=== PATIENT | female | born 1945 | race African-American/Black ===

== ENCOUNTER 2020-11-29 09:44 | Emergency (ER) | payer BC, MEDICARE ==
[~2020-11-29] VITALS: Ht 165.1 cm; Wt 78.6 kg
[2020-11-29 09:47] VITALS: BP 199/91
--- NOTE | 2020-11-29 10:50 | PHYS DOC ---
Past Medical History Past Medical History: Asthma, COPD, Hypertension Past Surgical History: Angioplasty, Hysterectomy, Pacemaker, Other Additional Past Surgical Histo: CARDIAC STENTS Smoking Status: Never Smoker Alcohol Use: None General Adult EDM: Chief Complaint: MECHANICAL FALL HPI: HPI: This is a pleasant 75-year-old female present emergency department today after sustaining a mechanical fall while walking back to her car at a local car dealership. She fell on both knees and then twisted her ankle. She denies hitting her head or loss of consciousness. She denies syncope. She denies any weakness or palpitations prior to the event. Her primary complaint is right ankle pain. Since the event her left knee does not hurt and has normal range of motion. Her right knee has some pain with a bruise overlying without an abrasion. She has pain in her right knee which is residual in her right ankle with some associated swelling in her right ankle. The pain is sharp shooting nonradiating without alleviating factors. Review of systems is negative for chest pain shortness of breath head injury loss of consciousness neck pain or back pain. All other review of systems negative. ED course: 75-year-old female presenting after fall with right knee and ankle pain. X-rays obtained. X-rays unremarkable. We will place the patient in an air splint with crutches and refer her to PCP for reexamination in 2 to 3 days. Heart Score: C/O Chest Pain: No Risk Factors: Risk Factors: DM, Current or recent (<one month) smoker, HTN, HLP, family history of CAD, obesity. Risk Scores: Score 0 - 3: 2.5% MACE over next 6 weeks - Discharge Home Score 4 - 6: 20.3% MACE over next 6 weeks - Admit for Clinical Observation Score 7 - 10: 72.7% MACE over next 6 weeks - Early Invasive Strategies Allergies: Allergies: Allergies Coded Allergies Type Severity Reaction Last Updated Verified lisinopril Allergy Severe ANGIOEDEMA 11/29/20 Yes Iodine and Iodide Containing Produc Allergy Unknown UNKNOWN 11/29/20 Yes Sulfa (Sulfonamide Antibiotics) Allergy Unknown UNKNOWN 11/29/20 Yes morphine Allergy Unknown UNKNOWN 11/29/20 Yes shellfish derived Allergy Unknown UNKNOWN 11/29/20 Yes Physical Exam: PE: Constitutional: Well developed, well nourished, no acute distress, non-toxic appearance. [] HENT: Normocephalic, atraumatic, bilateral external ears normal, oropharynx moist, no oral exudates, nose normal. [] Eyes: PERRLA, EOMI, conjunctiva normal, no discharge. [] Neck: Normal range of motion, no tenderness, supple, no stridor. [] Cardiovascular:Heart rate regular rhythm, no murmur [] Lungs & Thorax: Bilateral breath sounds clear to auscultation [] Abdomen: Bowel sounds normal, soft, no tenderness, no masses, no pulsatile masses. [] Skin: Warm, dry, no erythema, no rash. [] Back: No tenderness, no CVA tenderness. [] Extremities: The upper extremities are nontender with normal range of motion. Atraumatic without abrasions lacerations or ecchymosis. The patient's left lower extremity is nontender with normal range of motion of the joints. Nontender in the hip knee and ankle. Neurovascular intact with palpable pulse and 2-second cap refill. No ecchymosis abrasions lacerations. The patient's right lower extremity has ecchymosis just inferior to the patella without any abrasions or lacerations. She is tender on the patella. She is nontender on the lateral or medial portion of the knee joint. Normal range of motion of the knee with some minimal pain with passive range of motion. She is tender on the lateral malleolus with some associated swelling. No abrasions lacerations or ecchymosis of the ankle or foot. Palpable pulse with 2-second cap refill. Normal motor and sensory function of the foot. Neurologic: Alert and oriented X 3, normal motor function, normal sensory function, no focal deficits noted. [] Psychologic: Affect normal, judgement normal, mood normal. [] Current Patient Data: Vital Signs: Vital Signs Date Time Temp Pulse Resp B/P (MAP) Pulse Ox O2 Delivery O2 Flow Rate FiO2 11/29/20 09:47 98.3 78 19 199/91 (127) 97 Room Air 98.3 EKG: EKG: [] Radiology/Procedures: Radiology/Procedures: [] Course & Med Decision Making: Course & Med Decision Making Pertinent Labs and Imaging studies reviewed. (See chart for details) [] Dragon Disclaimer: Dragsriram Disclaimer: This electronic medical record was generated, in whole or in part, using a voice recognition dictation system. Departure Departure Impression: Primary Impression: Ankle injury Disposition: HOME / SELF CARE / HOMELESS Condition: STABLE Patient Instructions: Ankle Sprain, Ayue-fi-Eenn Additional Instructions: EMERGENCY DEPARTMENT GENERAL DISCHARGE INSTRUCTIONS We we will provide you with an ankle splint and crutches for now to follow-up with your doctor in a few days for reexamination of your ankle. Follow-up with your primary physician in 2-3 days. Return to the emergency department if you have any new or concerning findings. Thank you for coming to [facility] Emergency Department (ED) today and trusting us with you care. We trust that you had a positive experience in our Emergency Department. If you wish to speak to the department management, you may call the Director at [phone]. Follow up is important in emergency/acute care visits. This condition should be evaluated by your primary care physician and any necessary consulting services for continued management within a few days (1-2) after discharge. Return to the emergency department if you have any new or concerning symptoms including but not limited to fever, chills, nausea, vomiting, intractable pain, any new rashes, chest pain, shortness of breath, uncontrolled bleeding, difficulty breathing, and/or vision loss. 1. Do you have a private Doctor? If you do not have a private doctor, please ask for a resource list of physicians or clinics that may be able to assist you with follow up care. 2. If a lab test or culture has been done and does not come back immediately, your results will be reviewed and you will be notified if you need a change in treatment. 3. Your care today has been supervised by a physician who is specially trained in emergency care. Many problems require more than one evaluation for a complete diagnosis and treatment. We recommend that you schedule your follow up appointment as recommended to ensure complete treatment of you illness or injury. If you are unable to obtain follow up care and continue to have a problem, or if your condition worsens, we recommend that you return to the ED. 4. We are not able to safely determine your condition over the phone nor are we able to give sound medical advice over the phone. For these safety reasons, if you call for medical advice we will ask you to come to the ED for further evaluation. IF YOUR SYMPTOMS WORSEN OR NEW SYMPTOMS DEVELOP, OR YOU HAVE CONCERNS ABOUT YOUR CONDITION; OR IF YOUR CONDITION WORSENS WHILE YOU ARE WAITING FOR YOUR FOLLOW UP APPOINTMENT; EITHER CONTACT YOUR PRIMARY CARE DOCTOR, THE PHYSICIAN WHOSE NAME AND NUMBER YOU WERE GIVEN, OR RETURN TO THE ED IMMEDIATELY. YUE WYNN MD November 29, 2020 10:50
--- NOTE | 2020-11-29 11:21 | RAD ---
EXAM: Right knee, 4 views; right ankle, 3 views; right tibia and fibula, 2 views. HISTORY: Fall. COMPARISON: None. FINDINGS: Right knee: 4 views of the right knee are obtained. There is mild medial compartment joint space narr owing and [id number] medial compartment spurring. There is enthesopathy along the superior yeboah lla. There is no fracture, dislocation or subluxation. There is no joint effusion. Right tibia and fibula and right ankle: 2 views of the tibia and fibula and 3 views of the ankle are obtained. There is no fracture, dislocation or subluxation. There is diffuse lateral predominant ankl e soft tissue swelling. The ankle mortise is intact. There is no osteochondral lesion. There is a sma ll plantar spur. There is enthesopathy at the Achilles tendon insertion. IMPRESSION: 1. Nfxf-ul-[id number] medial compartment osteoarthritis of the right knee. 2. Diffuse lateral predominant ankle soft tissue swelling. 3. No acute osseous finding. Electronically signed by: Marii Magaña MD (11/29/2020 11:19 AM) [id number]
--- NOTE | 2020-11-29 11:21 | RAD ---
EXAM: Right knee, 4 views; right ankle, 3 views; right tibia and fibula, 2 views. HISTORY: Fall. COMPARISON: None. FINDINGS: Right knee: 4 views of the right knee are obtained. There is mild medial compartment joint space narr owing and [id number] medial compartment spurring. There is enthesopathy along the superior yeboah lla. There is no fracture, dislocation or subluxation. There is no joint effusion. Right tibia and fibula and right ankle: 2 views of the tibia and fibula and 3 views of the ankle are obtained. There is no fracture, dislocation or subluxation. There is diffuse lateral predominant ankl e soft tissue swelling. The ankle mortise is intact. There is no osteochondral lesion. There is a sma ll plantar spur. There is enthesopathy at the Achilles tendon insertion. IMPRESSION: 1. Fxxu-ac-mccqxuhw medial compartment osteoarthritis of the right knee. 2. Diffuse lateral predominant ankle soft tissue swelling. 3. No acute osseous finding. Electronically signed by: Marii Magaña MD (11/29/2020 11:19 AM) [id number]
--- NOTE | 2020-11-29 11:21 | RAD ---
EXAM: Right knee, 4 views; right ankle, 3 views; right tibia and fibula, 2 views. HISTORY: Fall. COMPARISON: None. FINDINGS: Right knee: 4 views of the right knee are obtained. There is mild medial compartment joint space narr owing and [id number]-nq-fuyuhtsn medial compartment spurring. There is enthesopathy along the superior yeboah lla. There is no fracture, dislocation or subluxation. There is no joint effusion. Right tibia and fibula and right ankle: 2 views of the tibia and fibula and 3 views of the ankle are obtained. There is no fracture, dislocation or subluxation. There is diffuse lateral predominant ankl e soft tissue swelling. The ankle mortise is intact. There is no osteochondral lesion. There is a sma ll plantar spur. There is enthesopathy at the Achilles tendon insertion. IMPRESSION: 1. Cgzm-wg-lpynxmgi medial compartment osteoarthritis of the right knee. 2. Diffuse lateral predominant ankle soft tissue swelling. 3. No acute osseous finding. Electronically signed by: Marii Magaña MD (11/29/2020 11:19 AM) [id number]
== END 2020-11-29 12:41 | disposition home or self-care (01) ==
LOC: ER 09:44
DX: S80.01XA Contusion of right knee, initial encounter (principal); S99.911A Unspecified injury of right ankle, initial encounter; J44.9 Chronic obstructive pulmonary disease, unspecified; I10 Essential (primary) hypertension; Z95.0 Presence of cardiac pacemaker; Z88.8 Allergy status to other drugs, medicaments and biological substances; Z88.2 Allergy status to sulfonamides; Z88.5 Allergy status to narcotic agent; Z91.013 Allergy to seafood; W18.39XA Other fall on same level, initial encounter; Y93.01 Activity, walking, marching and hiking; Y92.89 Other specified places as the place of occurrence of the external cause; Y99.8 Other external cause status
CPT/HCPCS: 29515; 73564; 73590; 73610; 99284; 99285